=== PATIENT | male | born 1980 | race African-American/Black ===

== ENCOUNTER 2016-08-12 23:24 | Emergency (ER) | payer SELFPAY ==
[~2016-08-12] VITALS: Ht 175.3 cm; Wt 73.0 kg
[2016-08-12 23:25] VITALS: BP 140/85
--- NOTE | 2016-08-12 23:35 | ED.ADGEN ---
Adult General Chief Complaint Chief Complaint " I had a penile fx before..it swelled up like..it was bigger than my arm.. it was painful.. and it required surgery... but tonight we were doing it and afterwards.. I had this bump here... I was just worried.. maybe I ilan hurt it again a little .. it does not hurt.. it just a little more full at the base than usual..." HPI HPI Patient is a 36 year old male who presents with above hx and complaints of mild enlargement left-sided base of his penis. Distal neurovascular intact. No obvious hernia. Does have findings of previous surgery scar. There is no ballottement of site. Site is nontender. The testicles are nontender. No dysuria. Patient denies any other trauma. Patient is visiting from [facility]. Patient does have a urologist in [facility]. Review of Systems Review of Systems Constitutional: Denies fever or chills [] Eyes: Denies change in visual acuity, redness, or eye pain [] HENT: Denies nasal congestion or sore throat [] Respiratory: Denies cough or shortness of breath [] Cardiovascular: No additional information not addressed in HPI [] GI: Denies abdominal pain, nausea, vomiting, bloody stools or diarrhea [] : Denies dysuria or hematuria [] complains of edema at left side base of penis Musculoskeletal: Denies back pain or joint pain [] Integument: Denies rash or skin lesions [] Neurologic: Denies headache, focal weakness or sensory changes [] Endocrine: Denies polyuria or polydipsia [] Family History Family History Noncontributory Current Medications Current Medications See nursing for home meds Allergies Allergies No known drug allergies Physical Exam Physical Exam Constitutional: Well developed, well nourished, no acute distress, non-toxic appearance. [] HENT: Normocephalic, atraumatic, bilateral external ears normal, oropharynx moist, no oral exudates, nose normal. [] Eyes: PERRLA, EOMI, conjunctiva normal, no discharge. [] Neck: Normal range of motion, no tenderness, supple, no stridor. [] Cardiovascular:Tachycardia Heart rate, regular rhythm, no murmur [] Lungs & Thorax: Bilateral breath sounds equal at apexes with few scattered wheezes on auscultation [] Abdomen: Bowel sounds normal, soft, no tenderness, no masses, no pulsatile masses. [ Penis exam as per history of present illness Skin: Warm, dry, no erythema, no rash. [] Back: No tenderness, no CVA tenderness. [] Extremities: No tenderness, no cyanosis, no clubbing, ROM intact, no edema. [] Neurologic: Alert and oriented X 3, normal motor function, normal sensory function, no focal deficits noted. [] Psychologic: Affect normal, judgement normal, mood normal. [] Current Patient Data Vital Signs Vital Signs Date Time Temp Pulse Resp B/P Pulse Ox O2 Delivery O2 Flow Rate FiO2 08/12/16 23:25 98.3 130 20 97 Room Air EKG EKG [] Radiology/Procedures Radiology/Procedures Pt. declined US of penis[] Course & Med Decision Making Course & Med Decision Making Pertinent Labs and Imaging studies reviewed. (See chart for details). Patient declines to wait for ultrasound of penis. Patient states he'll follow- up with his urologist. Patient advise the ice packs. Patient advised to avoid sexual activity. Patient advised to avoid NSAIDs. Patient to return if he decides complete workup. Must follow-up [] Final Impression Final Impression 1. History of penile fracture [] Problems: Dragon Disclaimer Dragon Disclaimer This electronic medical record was generated, in whole or in part, using a voice recognition dictation system. ADAM GAGNON MD Aug 12, 2016 23:35
== END 2016-08-13 00:15 | disposition home or self-care (01) ==
LOC: ER 23:28
DX: N48.89 Other specified disorders of penis (principal); M79.89 Other specified soft tissue disorders
CPT/HCPCS: 99283

== ENCOUNTER 2017-06-10 18:56 | Emergency (ER) | payer SELFPAY ==
[~2017-06-10] VITALS: Ht 175.3 cm; Wt 104.3 kg
[2017-06-10] MEDS ORDERED: IBUPROFEN 600 MG TABLET. PO ONE (20:15)
[2017-06-10] MEDS ORDERED: oxyCODONE/APAP 5/325 1 TAB TABLET PO ONE (20:15)
[2017-06-10] MEDS ORDERED: LIDOCAINE 2%/EPI 1:100,000 20 ML VIAL. IJ ONE (20:15)
[2017-06-10] MEDS ORDERED: SMZ/TMP 800/160MG TABLET. PO ONE (21:00)
[2017-06-10] MEDS ORDERED: ceFAZolin IM 1 GM VIAL IM ONE (21:00)
--- NOTE | 2017-06-10 21:02 | PHYS DOC ---
Past History Past Medical History: Diverticulitis Past Surgical History: Other Alcohol Use: Occasionally Drug Use: Marijuana Adult General Chief Complaint Chief Complaint: LOWER EXT PAIN HPI HPI Patient is a 37-year-old male presenting to the emergency department for evaluation of right lower extremity wound sustained 10 days ago. Patient says that he was backing up and accidentally cut himself on some broken glass. He was doing okay until 4 days ago when the wound started getting red swollen and draining purulent material. Patient's tetanus is not up-to-date so it was updated here. He denies any diabetes or immune system issues. He says that it has become very painful to walk on his leg due to the redness and swelling. He has an obvious open wound that appears to be draining spontaneously. He has had no systemic fevers chills nausea vomiting. He is in no obvious distress with normal vital signs. Review of Systems Review of Systems Constitutional: Denies fever or chills [] GI: Denies abdominal pain, nausea, vomiting, bloody stools or diarrhea [] Musculoskeletal: Denies back pain or joint pain [] Integument: Positive redness and swelling Neurologic: Denies headache, focal weakness or sensory changes [] All other systems were reviewed and found to be within normal limits, except as documented in this note. Current Medications Current Medications Current Medications Medications (Trade) Dose Ordered Sig/[place] Start Time Stop Time Status Last Admin Dose Admin Cefazolin Sodium (Ancef Im) 2 gm 1X ONCE 06/10/17 21:00 06/10/17 21:01 Ibuprofen (Motrin) 600 mg 1X ONCE 06/10/17 20:15 06/10/17 20:16 DC 06/10/17 20:16 600 MG Lidocaine/ Epinephrine (Xylocaine 2%-Epi 1:100,000) 20 ml 1X ONCE 06/10/17 20:15 06/10/17 20:16 DC 06/10/17 20:47 20 ML Oxycodone/ Acetaminophen (Percocet 5/325) 1 tab 1X ONCE 06/10/17 20:15 06/10/17 20:16 DC 06/10/17 20:16 1 TAB Trimethoprim/ Sulfamethoxazole (Bactrim Ds) 1 tab 1X ONCE 06/10/17 21:00 06/10/17 21:01 06/10/17 21:00 1 TAB Allergies Allergies Allergies Coded Allergies Type Severity Reaction Last Updated Verified No Known Drug Allergies 06/10/17 No Physical Exam Physical Exam Constitutional: Well developed, well nourished, no acute distress, non-toxic appearance. [] Cardiovascular:Heart rate regular rhythm, no murmur [] Lungs & Thorax: Bilateral breath sounds clear to auscultation [] Abdomen: Bowel sounds normal, soft, no tenderness, no masses, no pulsatile masses. [] Extremities: Right lower lateral tibia with approximate 10 x 12 cm cellulitis that is erythematous warm and painful to palpation. Approximately in the middle there is a 1 x 1 cm opening with spontaneously draining material. It feels as if there may be some surrounding induration as well. No obvious foreign body noted initially. Neurologic: Alert and oriented X 3, normal motor function, normal sensory function, no focal deficits noted. [] Current Patient Data Vital Signs Vital Signs Date Time Temp Pulse Resp B/P (MAP) Pulse Ox O2 Delivery O2 Flow Rate FiO2 06/10/17 20:48 87 18 147/101 (116) 98 Room Air 06/10/17 20:04 98.7 EKG EKG [] Radiology/Procedures Radiology/Procedures Right tib-fib x-ray shows no obvious fracture dislocation foreign body but there is some cobblestoning of his lateral tibia but no gas. Impressions: Indication: Suspected abscess Procedure: The patient was positioned appropriately and the skin over the incision site was prepped and draped with Betadine. Local anesthesia was injected into the wound approximately 10 mL of 1% lidocaine with epinephrine. An incision was extended on the superior and inferior portions of his wound approximately extending it 1 more set amino total and more purulent material was expressed material was expressed. Loculations were decompressed. The drainage cavity was then irrigated with saline and packed with quarter inch gauze. The patient tolerated the procedure well Complications: During my I and D there were multiple small piece of glass palpated and removed and I searched the wound cavity extensively for more glass and removed as much as I could. Course & Med Decision Making Course & Med Decision Making Patient presenting to the emergency department for evaluation of an infected wound with retained foreign body. I told him there is was a possibility that I could not get out all of the foreign body and that he should follow with a primary care provider within 1-2 days for reassessment. His tetanus was updated and he was given a shot of Ancef and by mouth Bactrim. He was told to elevate his leg as much as possible and come back to the emergency department with worsening pain redness swelling or other general concerns. I outlined the area of cellulitis and told him to return with worsening cellulitis. Patient aware and agreeable with plan for discharge and verbalized understanding of the need for short-term follow-up and strict ED return precautions discussed as above. Dragon Disclaimer Dragon Disclaimer This electronic medical record was generated, in whole or in part, using a voice recognition dictation system. Departure Departure: Impression: Primary Impression: Wound infection Additional Impressions: Abscess Retained foreign body Disposition: HOME, SELF-CARE Condition: STABLE Referrals: PCP,DAVID (PCP) Patient Instructions: Abscess, Care After Additional Instructions: Take 400 mg of ibuprofen every 6 hours and the [place] for breakthrough pain. Follow with a primary care provider within 1-2 days and come back to the ED sooner with worsening pain fevers vomiting or other general concerns. Scripts Sulfamethoxazole/Trimethoprim (BACTRIM DS TABLET) 1 Each Tablet 1 TAB PO BID, #14 TAB Prov: KARLA STOCK DO 06/10/17 Hydrocodone Bit/Acetaminophen (NORCO 5-325 TABLET) 1 Each Tablet 1 TAB PO PRN Q6HRS Y for PAIN, #20 TAB 0 Refills Prov: KARLA STOCK DO 06/10/17 Problem Qualifiers KARLA STOCK DO Jun 10, 2017 21:02
[2017-06-10] MEDS ORDERED: HYDR-971 PO (21:10)
[2017-06-10] MEDS ORDERED: SULF1TAB24 PO (21:10)
[2017-06-10 21:29] VITALS: BP 134/80
[2017-06-10] MEDS ORDERED: DIPHTH,PERTUSS(ACELL),TET TOX 0.5 ML DISP.SYRIN. VAX IM ONE (21:30)
--- NOTE | 2017-06-11 08:28 | RAD ---
Right tibia and fibula, 2 views, 06/10/2017: History: Previous puncture wound with redness and swelling No fracture or destructive bony lesion is seen. A tiny lucency compatible with gas is projected over the soft tissues of the mid calf laterally, presumably at the level the patient's known wound. This may be due to an open wound or infection. No radiopaque foreign body is seen in the soft tissues. IMPRESSION: No acute bony abnormality is detected.
== END 2017-06-10 21:31 | disposition home or self-care (01) ==
LOC: ER 18:56
DX: L02.415 Cutaneous abscess of right lower limb (principal); S80.851A Superficial foreign body, right lower leg, initial encounter; F12.10 Cannabis abuse, uncomplicated; W25.XXXA Contact with sharp glass, initial encounter; Y93.89 Activity, other specified; Y99.8 Other external cause status; Y92.89 Other specified places as the place of occurrence of the external cause
CPT/HCPCS: 10060; 73590; 96372; 99284; J0690

== ENCOUNTER 2018-01-15 14:08 | Emergency (ER) | payer SELFPAY ==
[~2018-01-15] VITALS: Ht 175.3 cm; Wt 75.0 kg
[~2018-01-15 14:08] MED LIST: HYDR-971 PO; SULF1TAB24 PO
[2018-01-15 14:10] VITALS: BP 126/83
[2018-01-15] MEDS ORDERED: PENI500T PO (14:40)
--- NOTE | 2018-01-15 14:40 | PHYS DOC ---
Past History Past Medical History: Diverticulitis Past Surgical History: Other Alcohol Use: Occasionally Drug Use: Marijuana Adult General Chief Complaint Chief Complaint: DENTAL PROBLEM HPI HPI 37-year-old male presenting to the emergency department today with dental pain and swelling over the lower left jaw. This been going on for a few days into a week. He has taken some antibiotics with mild relief but then the pain came back and the swelling started. The pain is a throbbing mild to moderate pain without exacerbating factors. He denies drooling tongue swelling difficulty speaking or chest pain. Review of systems is negative for fevers chills nausea vomiting. All other review of systems is negative unless otherwise noted in history of present illness. ED course: 37-year-old male presenting to the emergency department today with dental pain and swelling. On examination he has a dental abscess with dental cavities in the left lower molar. I will have the patient be seen by our oral maxillofacial surgeon here in clinic for evaluation. The patient was then discharged home in stable condition to be seen immediately by doctor Card in clinic. If for some reason patient cannot have this done he should return immediately. They were to return if their symptoms worsened or if they were concerned for any reason. They were also instructed to return to the emergency department if they were unable to get the recommended and appropriate follow- up. [id number] discharge instructions and return precautions were given. Patient's questions were answered to their satisfaction. Patient is comfortable with plan. Review of Systems Review of Systems SEE ABOVE. Allergies Allergies Allergies Coded Allergies Type Severity Reaction Last Updated Verified No Known Drug Allergies 06/10/17 No Physical Exam Physical Exam Constitutional: Well developed, well nourished, no acute distress, non-toxic appearance. [] HENT: Normocephalic, atraumatic, bilateral external ears normal, oropharynx moist, no oral exudates, nose normal. Patient has swelling just above the jawline with probable abscess formation. Otherwise no trismus on examination. He has these cavities of the left lower molars. Tongue is normal. No HAZARD[employer]. Normal range of motion the neck. Eyes: PERRLA, EOMI, conjunctiva normal, no discharge. [] Neck: Normal range of motion, no tenderness, supple, no stridor. [] Cardiovascular:Heart rate regular rhythm, no murmur [] Lungs & Thorax: Bilateral breath sounds clear to auscultation [] Abdomen: Bowel sounds normal, soft, no tenderness, no masses, no pulsatile masses. [] Skin: Warm, dry, no erythema, no rash. [] Back: No tenderness, no CVA tenderness. [] Extremities: No tenderness, no cyanosis, no clubbing, ROM intact, no edema. [] Neurologic: Alert and oriented X 3, normal motor function, normal sensory function, no focal deficits noted. [] Psychologic: Affect normal, judgement normal, mood normal. [] Current Patient Data Vital Signs Vital Signs Date Time Temp Pulse Resp B/P (MAP) Pulse Ox O2 Delivery O2 Flow Rate FiO2 01/15/18 14:10 98.2 99 18 100 Room Air EKG EKG [] Radiology/Procedures Radiology/Procedures [] Course & Med Decision Making Course & Med Decision Making Pertinent Labs and Imaging studies reviewed. (See chart for details) [] Dragon Disclaimer Dragon Disclaimer This electronic medical record was generated, in whole or in part, using a voice recognition dictation system. Departure Departure: Impression: Primary Impression: Dental abscess Disposition: HOME, SELF-CARE Condition: STABLE Referrals: DAVID AYALA (PCP) DOLORES GAONA DMD Patient Instructions: Dental Abscess Additional Instructions: Thank you for allowing us to participate in your care today. Return to the emergency department you have any new or worsening symptoms, or if you are concerned for any reason. Return to emergency department if you have any new or concerning symptoms including but not limited to fever, chills, nausea, vomiting, intractable pain, any new rashes, chest pain, shortness of air , uncontrolled bleeding, difficulty breathing, and/or vision loss. Follow up with your primary care physician within 3 days. Call your Primary Doctor tomorrow and inform them of your visit today. If you do not have a primary care provider we are happy to provide you with a list of our primary care providers contact information. This condition should be evaluated by your primary care physician and any recommended consulting services for continued management within 2-3 days after discharge. If at any time, you are having difficulty getting into your primary care doctor or a specialist, return to the emergency department. Scripts Penicillin V Potassium (PENICILLIN V POTASSIUM) 500 Mg Tablet 1 TAB PO BID, #10 TAB 0 Refills Prov: TAWNYA MA MD 01/15/18 TAWNYA MA MD Jan 15, 2018 14:40
== END 2018-01-15 14:45 | disposition home or self-care (01) ==
LOC: ER 14:08
DX: K04.7 Periapical abscess without sinus (principal)
CPT/HCPCS: 99283